=== PATIENT | male | born 1965 | race Caucasian/White ===

== ENCOUNTER 2016-12-19 20:54 | Emergency (ER) | payer BC ==
[~2016-12-19] VITALS: Ht 180.3 cm; Wt 124.7 kg
[~2016-12-19 20:54] MED LIST: HCTZ PO; LISI10TA5 PO
[2016-12-19 20:55] VITALS: BP 162/112; PULSE 99; RESP 18; TEMP 97.9; O2SAT 99
--- NOTE | 2016-12-19 20:55 | NUR ---
Patient to ER bed 4 to gown for evaluation. Side rails up. Report given to Ines TORRES.
--- NOTE | 2016-12-19 21:02 | NUR ---
Patient to ER C/O 4-5 days of feeling dizzy, mild headache and "not feeling good" Patient states that he checked his BP and SBP 170-190's at home. Patient also stated that in the last 2 days he doubled up his BP meds but BP still very high. AAOx4, unlabored breathing, no signs of acute distress.
--- NOTE | 2016-12-19 21:23 | NUR ---
ER MD Schuler at bedside for evaluation
--- NOTE | 2016-12-19 21:44 | NUR ---
ER MD Schuler at bedside discussing plan of care and home treatment with patient and spouse.
--- NOTE | 2016-12-19 22:00 | NUR ---
Per ER MD Schuler OK to discharge with BP154/88
[2016-12-19 22:04] VITALS: BP 154/88; PULSE 94; RESP 18; TEMP 98; O2SAT 95
--- NOTE | 2016-12-19 22:04 | NUR ---
Patient given written and verbal discharge instructions and verbalizes understanding. ER MD Schuler discussed with patient the results and treatment provided. Patient in stable condition. ID arm band removed. Patient educated on pain management and to follow up with PMD. Pain Scale 0/10. Opportunity for questions provided and answered. Patient advised to return to ER if symptoms return including severe headache, N/V, dizziness.
== END 2016-12-19 22:04 | disposition home or self-care (01) ==
LOC: SED 20:54
DX: I10 Essential (primary) hypertension (principal)
CPT/HCPCS: 99281

== ENCOUNTER 2017-10-05 21:09 | Emergency (ER) | payer BC ==
[~2017-10-05] VITALS: Ht 180.3 cm; Wt 129.3 kg
[2017-10-05 21:15] VITALS: BP_SYST 149
[2017-10-05] MEDS: ASPIRIN 81 MG TAB.CHEW PO ONE (22:16)
[2017-10-05 23:37] VITALS: BP_SYST 134
== END 2017-10-05 23:37 | disposition home or self-care (01) ==
LOC: SED 21:09
DX: I10 Essential (primary) hypertension (principal)
CPT/HCPCS: 70450-TC; 99284

== ENCOUNTER 2019-01-17 11:59 | Emergency (ER) | payer BC ==
[~2019-01-17] VITALS: Ht 180.3 cm; Wt 124.7 kg
[2019-01-17 12:00] VITALS: BP_SYST 149
[2019-01-17 13:16] LABS: BASOPHILS % (AUTO) 0.6 % (0.0-2.0); EOSINOPHILS % (AUTO) 2.7 % (0.0-4.0); HEMATOCRIT 46.4 % (36-54); HEMOGLOBIN 15.3 g/dL (14.0-18.0); LYMPHOCYTES # (AUTO) 1.3 K/uL (1.0-5.5); LYMPHOCYTES % (AUTO) 18.1 % (20.5-51.5); MEAN CORPUSCULAR HEMOGLOBIN 27 pg (27-31); MEAN CORPUSCULAR HGB CONC 33 % (32-36); MEAN CORPUSCULAR VOLUME 81 fL (79.0-98.0); MONOCYTES # (AUTO) 0.4 K/uL (0.0-1.0); MONOCYTES % (AUTO) 6.1 % (1.7-9.3); NEUTROPHILS # (AUTO) 5.2 K/uL (1.8-7.7); NEUTROPHILS % (AUTO) 72.5 % (40.0-70.0); PLATELET COUNT (AUTO) 205 K/uL (130-430); RED BLOOD CELL COUNT(AUTO) 5.76 MIL/uL (4.2-6.2); RED CELL DISTRIBUTION WIDTH 15.3 % (9.0-15.0); WHITE BLOOD COUNT (AUTO) 7.1 K/uL (4.8-10.8)
[2019-01-17 13:17] LABS: EOSINOPHILS # (AUTO) 0.2 K/uL (0.0-0.4)
[2019-01-17 13:26] LABS: ANION GAP 6 (5-15); CALCIUM 8.9 mg/dL (8.4-11.0); CHLORIDE 103 mmol/L (98-107); CREATININE 1.05 mg/dL (0.55-1.30); GLUCOSE 249 mg/dL (70-99); POTASSIUM 3.4 mmol/L (3.5-5.1); SODIUM SERUM 137 mmol/L (136-145); UREA NITROGEN, BLOOD 12 mg/dL (8-21)
[2019-01-17 13:29] LABS: INR 1.2 (0.80-1.20); PROTHROMBIN TIME 11.8 SECS (9.5-12.5)
[2019-01-17 13:33] LABS: GFR AFRICAN AMERICAN 94 mL/min (>90)
[2019-01-17 13:42] LABS: ALANINE AMINOTRANSFERASE 40 U/L (12-78); ALBUMIN 3.3 g/dL (3.4-4.8); ASPARTATE AMINOTRANSFERASE 19 U/L (10-37); FREE T4 (FREE THYROXINE) 0.5 ng/dL (0.6-1.6); TOTAL BILIRUBIN 0.5 mg/dL (0.0-1.0)
[2019-01-17 13:44] LABS: ALCOHOL, BLOOD < 3 mg/dL (<10)
[2019-01-17] MEDS ORDERED: ASPIRIN 325 MG TABLET PO ONE (14:15)
[2019-01-17] MEDS ORDERED: POTASSIUM CHLORIDE 20 MEQ TAB.PRT.SR PO ONE (14:45)
[2019-01-17 15:25] VITALS: BP_SYST 150
== END 2019-01-17 15:27 | disposition home or self-care (01) ==
LOC: SED 11:59
DX: G45.9 Transient cerebral ischemic attack, unspecified (principal); E78.00 Pure hypercholesterolemia, unspecified; I10 Essential (primary) hypertension
CPT/HCPCS: 36415; 70450; 71045; 74018; 80053; 82140; 83605; 83880; 84439; 84484; 85025; 85610; 87040; 93005; 99284; G0482

== ENCOUNTER 2021-01-21 00:31 | Emergency (ER) | payer BC ==
[~2021-01-21] VITALS: Ht 180.3 cm; Wt 108.9 kg
[~2021-01-21 00:31] MED LIST changes: +LISI10TA29 PO; -LISI10TA5 PO
[2021-01-21 00:45] VITALS: BP_SYST 169
--- NOTE | 2021-01-21 00:46 | NUR ---
Patient to ER bed 8 to gown for evaluation. Side rails up. Report given to Sher TORRES.
--- NOTE | 2021-01-21 00:56 | NUR ---
Patient alert and oriented x4 came to ER c/o pain to right upper bicep. Patient stated that he was lifting an object at home and felt his arm twist the wrong way. Arm is swollen with reddness. Patient has history of HTN. Current level of pain is 5/10 on the pain scale. waiting for MD evaluation.
--- NOTE | 2021-01-21 01:30 | NUR ---
ER at bedside examining patient.
[2021-01-21] MEDS ORDERED: HYDROcodone/ACETAMIN 10-325 MG TAB PO ONE (02:30)
[2021-01-21] MEDS ORDERED: HYDR-4272 PO (02:55)
[2021-01-21] MEDS ORDERED: IBUP-1969 PO (02:57)
[2021-01-21] MEDS ORDERED: IBUPROFEN 800 MG TABLET PO ONE (03:00)
[2021-01-21 03:02] VITALS: BP_SYST 135
--- NOTE | 2021-01-21 03:03 | NUR ---
Patient given written and verbal discharge instructions and verbalizes understanding. ER MD discussed with patient the results and treatment provided. Patient in stable condition. ID arm band removed. Rx of norco and ibuprofen given. Patient educated on pain management and to follow up with PMD. Pain Scale . Opportunity for questions provided and answered. Medication side effect fact sheet provided.
== END 2021-01-21 03:02 | disposition home or self-care (01) ==
LOC: SED 00:31
DX: S46.212A Strain of muscle, fascia and tendon of other parts of biceps, left arm, initial encounter (principal); I10 Essential (primary) hypertension; E78.00 Pure hypercholesterolemia, unspecified; X50.9XXA Other and unspecified overexertion or strenuous movements or postures, initial encounter; Y93.89 Activity, other specified; Y92.89 Other specified places as the place of occurrence of the external cause; Y99.8 Other external cause status
CPT/HCPCS: 99283